=== PATIENT | female | born 1950 | race Asian ===

== ENCOUNTER 2020-05-25 16:54 | Inpatient (IN) | payer OTHER ==
[2020-05-25 17:13] VITALS: BMI 25.2
[2020-05-25] MEDS ORDERED: ASPIRIN 81 MG CHEWABLE TABLETS PO ONE (20:01)
[2020-05-25] MEDS ORDERED: amLODIPine BESYLATE 5 MG TABLET (FP) PO ONE (20:02)
[2020-05-25] MEDS ORDERED: amLODIPine BESYLATE 5 MG TABLET (FP) ONE (20:04)
[2020-05-25] MEDS ORDERED: ASPIRIN 81 MG CHEWABLE TABLETS ONE (20:04)
[2020-05-25 20:40] LABS: BASO % 1.3 % (0-2.0); EOS % 0.5 % (0-4.5); HEMATOCRIT 44.4 % (32.4-45.2); MCH 27.1 pg (25.7-33.7); MCHC 33.8 g/dl (32.0-36.0); MEAN PLT VOLUME 9.2 fl (7.5-11.1); MONO % 10.9 % (3.8-10.2); NEUT % 72.3 % (42.8-82.8); PLATELET COUNT 207 K/MM3 (134-434); RBC 5.55 M/mm3 (3.60-5.2); RDW 16.9 % (11.6-15.6); WHITE BLOOD COUNT 11.1 K/mm3 (4.0-10.0)
[2020-05-25 20:46] LABS: INR 3.14 (0.83-1.09); PROTHROMBIN TIME (PATIENT) 36.8 SEC (9.7-13.0)
[2020-05-25 20:49] LABS: ACTIVATED PTT 46.6 SECONDS (25.2-36.5)
[2020-05-25 20:58] LABS: POTASSIUM 4.5 mmol/L (3.5-5.1)
[2020-05-25 21:00] LABS: ALBUMIN 3.8 g/dl (3.4-5.0); BLOOD UREA NITROGEN 22.3 mg/dL (7-18); CALCIUM 9.3 mg/dL (8.5-10.1)
[2020-05-25 21:05] LABS: BILIRUBIN,TOTAL 1.7 mg/dL (0.2-1); TOT PROT 6.7 g/dl (6.4-8.2)
[2020-05-25 21:08] LABS: N-TERMINAL BNP 4351.8 pg/ml (5-125)
[2020-05-25] MEDS ORDERED: FUROSEMIDE 40 MG/4 ML INJECTABLE VIAL IVPUSH ONE (21:42)
[2020-05-25] MEDS ORDERED: FUROSEMIDE 40 MG/4 ML INJECTABLE VIAL ONE (22:12)
[2020-05-25] MEDS ORDERED: dilTIAZem HCL 50 MG/10 ML - 10 ML VIAL IVPUSH ONE (22:52)
[2020-05-25] MEDS ORDERED: dilTIAZem HCL 125 MG/25 ML - 25 ML VIAL ONE (23:04)
[2020-05-26 07:55] LABS: BASO % 0.9 % (0-2.0); EOS % 1.6 % (0-4.5); HEMATOCRIT 41.6 % (32.4-45.2); HEMOGLOBIN 14.3 GM/dL (10.7-15.3); LYMPH % 9.8 % (8-40); MCH 27.2 pg (25.7-33.7); MCHC 34.4 g/dl (32.0-36.0); MEAN CELL VOLUME 78.9 fl (80-96); MEAN PLT VOLUME 9.6 fl (7.5-11.1); MONO % 11.8 % (3.8-10.2); NEUT % 75.9 % (42.8-82.8); PLATELET COUNT 197 K/MM3 (134-434); RBC 5.27 M/mm3 (3.60-5.2); RDW 16.6 % (11.6-15.6); WHITE BLOOD COUNT 11.9 K/mm3 (4.0-10.0)
[2020-05-26 08:10] LABS: INR 3.09 (0.83-1.09); PROTHROMBIN TIME (PATIENT) 36.8 SEC (9.7-13.0)
[2020-05-26 08:14] LABS: CHLORIDE 107 mmol/L (98-107); POTASSIUM 4.9 mmol/L (3.5-5.1); SODIUM 142 mmol/L (136-145)
[2020-05-26 08:18] LABS: ALBUMIN 3.5 g/dl (3.4-5.0); ANION GAP 6 MMOL/L (8-16); BLOOD UREA NITROGEN 22.1 mg/dL (7-18); CO2 28 mmol/L (21-32); GLUCOSE,RANDOM 190 mg/dL (74-106); MAGNESIUM 1.8 mg/dL (1.8-2.4)
[2020-05-26 08:21] LABS: CREATININE 0.9 mg/dL (0.55-1.3); SGOT/AST 25 U/L (15-37); SGPT/ALT 34 U/L (13-61)
[2020-05-26 08:23] LABS: BILIRUBIN,TOTAL 1.8 mg/dL (0.2-1); TOT PROT 6.3 g/dl (6.4-8.2)
[2020-05-26 08:24] LABS: ALK PHOS 122 U/L (45-117)
[2020-05-26] MEDS: INSULIN SLIDING SCALE (NOVOLOG) 1 VIAL SQ SCH ×4 (08:40→21:59)
[2020-05-26] MEDS ORDERED: INSULIN (LEVEMIR) 100 UNITS/ML UNITS SQ SCH (10:00)
[2020-05-26] MEDS ORDERED: FUROSEMIDE 40 MG/4 ML INJECTABLE VIAL IVPUSH SCH (10:00)
[2020-05-26] MEDS ORDERED: ASCORBIC ACID 1000 MG PO SCH (10:00)
[2020-05-26] MEDS ORDERED: FUROSEMIDE 40 MG/4 ML INJECTABLE VIAL ONE (10:05)
[2020-05-26] MEDS: FUROSEMIDE 40 MG/4 ML INJECTABLE VIAL IVPUSH SCH (10:22)
[2020-05-26] MEDS: ASCORBIC ACID 500 MG TABLET (FP) PO SCH (10:23)
[2020-05-26] MEDS ORDERED: ASCORBIC ACID 500 MG TABLET (FP) ONE (10:24)
[2020-05-26] MEDS ORDERED: METOPROLOL TARTRATE 5 MG/5 ML VIAL IVPUSH PRN (14:23)
[2020-05-26] MEDS ORDERED: METOPROLOL TARTRATE 25 MG TABLET (FP) PO SCH (14:30)
[2020-05-26] MEDS ORDERED: METOPROLOL TARTRATE 25 MG TABLET (FP) ONE ×2 (14:31→20:51)
[2020-05-26] MEDS: METOPROLOL TARTRATE 25 MG TABLET (FP) PO SCH ×2 (14:34→21:16)
[2020-05-26 14:42] LABS: CHOLESTEROL 150 mg/dL (50-200); TRIGLYCERIDES 122 mg/dL (0-150)
[2020-05-26 14:43] LABS: LDL CHOLESTEROL (ONLY SJRH) 81 mg/dL (5-100)
[2020-05-26 14:44] LABS: HDL CHOLESTEROL 61 mg/dL (40-60)
[2020-05-26] MEDS: INSULIN (NOVOLOG) ASPART 100 UNITS/ML 10ML VIAL SQ SCH (17:27)
[2020-05-26] MEDS ORDERED: ATORVASTATIN CA 10 MG TABLET (FP) ONE (20:51)
[2020-05-26] MEDS: ATORVASTATIN CA 10 MG TABLET (FP) PO SCH (21:16)
[2020-05-26] MEDS: INSULIN (LEVEMIR) 100 UNITS/ML UNITS SQ SCH (21:59)
[2020-05-27] MEDS: INSULIN SLIDING SCALE (NOVOLOG) 1 VIAL SQ SCH ×4 (09:02→21:42)
[2020-05-27] MEDS ORDERED: INSULIN (LEVEMIR) 100 UNITS/ML UNITS SQ ONE ×2 (09:08→21:35)
[2020-05-27] MEDS: INSULIN (LEVEMIR) 100 UNITS/ML UNITS SQ SCH ×2 (09:14→21:42)
[2020-05-27] MEDS: INSULIN (NOVOLOG) ASPART 100 UNITS/ML 10ML VIAL SQ SCH ×3 (09:14→18:10)
[2020-05-27] MEDS ORDERED: ASCORBIC ACID 500 MG TABLET (FP) ONE (09:20)
[2020-05-27] MEDS ORDERED: METOPROLOL TARTRATE 25 MG TABLET (FP) ONE ×2 (09:20→21:34)
[2020-05-27] MEDS ORDERED: FUROSEMIDE 40 MG/4 ML INJECTABLE VIAL ONE (09:28)
[2020-05-27] MEDS: FUROSEMIDE 40 MG/4 ML INJECTABLE VIAL IVPUSH SCH (09:33)
[2020-05-27] MEDS: METOPROLOL TARTRATE 25 MG TABLET (FP) PO SCH ×2 (09:34→21:42)
[2020-05-27] MEDS: ASCORBIC ACID 500 MG TABLET (FP) PO SCH (09:34)
[2020-05-27 10:59] LABS: BASO % 0.8 % (0-2.0); EOS % 1.3 % (0-4.5); HEMATOCRIT 44.3 % (32.4-45.2); LYMPH % 9.8 % (8-40); MCH 27.1 pg (25.7-33.7); MCHC 33.9 g/dl (32.0-36.0); MEAN PLT VOLUME 9.7 fl (7.5-11.1); MONO % 12.4 % (3.8-10.2); NEUT % 75.7 % (42.8-82.8); PLATELET COUNT 209 K/MM3 (134-434); RBC 5.54 M/mm3 (3.60-5.2); RDW 16.5 % (11.6-15.6); WHITE BLOOD COUNT 11.2 K/mm3 (4.0-10.0)
[2020-05-27 11:06] LABS: INR 2.09 (0.83-1.09); PROTHROMBIN TIME (PATIENT) 24.7 SEC (9.7-13.0)
[2020-05-27 11:35] LABS: BLOOD UREA NITROGEN 32.5 mg/dL (7-18); CALCIUM 9.2 mg/dL (8.5-10.1)
[2020-05-27 11:36] LABS: ALBUMIN 3.5 g/dl (3.4-5.0)
[2020-05-27 11:40] LABS: BILIRUBIN,TOTAL 1.6 mg/dL (0.2-1); TOT PROT 6.6 g/dl (6.4-8.2)
[2020-05-27] MEDS ORDERED: INSULIN REGULAR HUMAN 100 UNITS/ML *VIAL ONE (18:05)
[2020-05-27] MEDS ORDERED: ATORVASTATIN CA 10 MG TABLET (FP) ONE (21:34)
[2020-05-27] MEDS: ATORVASTATIN CA 10 MG TABLET (FP) PO SCH (21:42)
[2020-05-28] MEDS: INSULIN (LEVEMIR) 100 UNITS/ML UNITS SQ SCH ×2 (06:57→22:09)
[2020-05-28] MEDS: INSULIN SLIDING SCALE (NOVOLOG) 1 VIAL SQ SCH ×4 (06:58→22:09)
[2020-05-28] MEDS: INSULIN (NOVOLOG) ASPART 100 UNITS/ML 10ML VIAL SQ SCH ×3 (06:58→17:48)
[2020-05-28 07:31] LABS: BASO % 0.9 % (0-2.0); EOS % 0.3 % (0-4.5); HEMATOCRIT 44.6 % (32.4-45.2); HEMOGLOBIN 14.9 GM/dL (10.7-15.3); LYMPH % 11.7 % (8-40); MCH 26.8 pg (25.7-33.7); MCHC 33.5 g/dl (32.0-36.0); MEAN CELL VOLUME 80.1 fl (80-96); MONO % 8.2 % (3.8-10.2); NEUT % 78.9 % (42.8-82.8); RBC 5.57 M/mm3 (3.60-5.2); RDW 16.9 % (11.6-15.6); WHITE BLOOD COUNT 12.7 K/mm3 (4.0-10.0)
[2020-05-28 07:33] LABS: INR 1.77 (0.83-1.09); PROTHROMBIN TIME (PATIENT) 21.1 SEC (9.7-13.0)
[2020-05-28 07:57] LABS: POTASSIUM 4.3 mmol/L (3.5-5.1)
[2020-05-28 08:00] LABS: ALBUMIN 3.6 g/dl (3.4-5.0); BLOOD UREA NITROGEN 36.6 mg/dL (7-18)
[2020-05-28 08:01] LABS: CALCIUM 9.4 mg/dL (8.5-10.1)
[2020-05-28 08:03] LABS: CREATININE 0.9 mg/dL (0.55-1.3)
[2020-05-28 08:04] LABS: BILIRUBIN,TOTAL 1.5 mg/dL (0.2-1); TOT PROT 6.8 g/dl (6.4-8.2)
[2020-05-28] MEDS: FUROSEMIDE 40 MG/4 ML INJECTABLE VIAL IVPUSH SCH (09:16)
[2020-05-28] MEDS: ASCORBIC ACID 500 MG TABLET (FP) PO SCH (09:16)
[2020-05-28] MEDS: METOPROLOL TARTRATE 25 MG TABLET (FP) PO SCH ×2 (09:17→22:09)
[2020-05-28] MEDS ORDERED: PT OWN MED DRAWER 7, Y5N ONE (09:43)
[2020-05-28 10:06] LABS: PLATELET COUNT 215 K/MM3 (134-434)
[2020-05-28 14:38] LABS: EPI CELLS 6 /uL (0-25.1); HYALINE CASTS 1 /uL (0-3.1); URINE APPEARANCE CLEAR; URINE BACTERIA 214 /uL (0-1359); URINE BILIRUBIN NEGATIVE (NEGATIVE); URINE COLOR YELLOW; URINE GLUCOSE (UA) NEGATIVE (NEGATIVE); URINE KETONE NEGATIVE (NEGATIVE); URINE LEUK ESTERASE TRACE (NEGATIVE); URINE NITRITE NEGATIVE (NEGATIVE); URINE PROTEIN NEGATIVE (NEGATIVE); URINE RBC 2 /uL (0-23.9); URINE UROBILINOGEN 0.2 mg/dL (0.2-1.0); URINE WBC 24 /uL (0-25.8)
[2020-05-28] MEDS ORDERED: WARFARIN NA 5 MG TABLET PO ONE (21:09)
[2020-05-28] MEDS: ATORVASTATIN CA 10 MG TABLET (FP) PO SCH (22:09)
[2020-05-28] MEDS: METHIMAZOLE 10 MG TABLET (FP) PO SCH (22:09)
[2020-05-29] MEDS: METHIMAZOLE 10 MG TABLET (FP) PO SCH ×3 (06:00→20:59)
[2020-05-29] MEDS: INSULIN SLIDING SCALE (NOVOLOG) 1 VIAL SQ SCH ×4 (06:20→21:01)
[2020-05-29] MEDS: INSULIN (NOVOLOG) ASPART 100 UNITS/ML 10ML VIAL SQ SCH ×3 (06:20→17:48)
[2020-05-29] MEDS: INSULIN (LEVEMIR) 100 UNITS/ML UNITS SQ SCH ×2 (06:20→21:00)
[2020-05-29] MEDS ORDERED: PNEUMOC 13-VAL CONJ-DIP CRM/PF 0.5 ML DISP.SYRIN IM ONE (07:51)
[2020-05-29] MEDS ORDERED: PT OWN MED DRAWER 7, Y5N ONE (09:26)
[2020-05-29] MEDS: ASCORBIC ACID 500 MG TABLET (FP) PO SCH (10:27)
[2020-05-29] MEDS: FUROSEMIDE 40 MG/4 ML INJECTABLE VIAL IVPUSH SCH (10:27)
[2020-05-29] MEDS: CEFUROXIME AXETIL 500 MG TABLET PO SCH ×2 (10:27→20:59)
[2020-05-29] MEDS: METOPROLOL TARTRATE 25 MG TABLET (FP) PO SCH ×2 (10:27→20:59)
[2020-05-29] MEDS ORDERED: ACETAMINOPHEN 500 MG TABLET (FP) PO ONE (10:53)
[2020-05-29] MEDS: LIDOCAINE 5% TOPICAL PATCH TP SCH (11:09)
[2020-05-29 12:46] LABS: BASO % 0.7 % (0-2.0); EOS % 0.7 % (0-4.5); HEMATOCRIT 41.8 % (32.4-45.2); HEMOGLOBIN 14.4 GM/dL (10.7-15.3); LYMPH % 8.2 % (8-40); MCH 27.3 pg (25.7-33.7); MCHC 34.3 g/dl (32.0-36.0); MEAN CELL VOLUME 79.4 fl (80-96); MEAN PLT VOLUME 9.5 fl (7.5-11.1); MONO % 9.4 % (3.8-10.2); PLATELET COUNT 204 K/MM3 (134-434); RBC 5.26 M/mm3 (3.60-5.2); RDW 16.7 % (11.6-15.6); WHITE BLOOD COUNT 12.6 K/mm3 (4.0-10.0)
[2020-05-29 12:55] LABS: INR 1.56 (0.83-1.09); PROTHROMBIN TIME (PATIENT) 18.6 SEC (9.7-13.0)
[2020-05-29 13:11] LABS: POTASSIUM 4.4 mmol/L (3.5-5.1)
[2020-05-29 13:13] LABS: ALBUMIN 3.6 g/dl (3.4-5.0); BLOOD UREA NITROGEN 27.1 mg/dL (7-18); CALCIUM 9.2 mg/dL (8.5-10.1); MAGNESIUM 1.8 mg/dL (1.8-2.4)
[2020-05-29] MEDS ORDERED: ENOXAPARIN NA (PORCINE) 60 MG/0.6 ML DISP.SYRIN SQ SCH (13:15)
[2020-05-29 13:18] LABS: BILIRUBIN,TOTAL 1.4 mg/dL (0.2-1); TOT PROT 6.6 g/dl (6.4-8.2)
[2020-05-29] MEDS: ENOXAPARIN NA (PORCINE) 60 MG/0.6 ML DISP.SYRIN SQ SCH ×2 (14:32→21:00)
[2020-05-29] MEDS: WARFARIN NA 3 MG TABLET PO SCH (17:49)
[2020-05-29] MEDS: ATORVASTATIN CA 10 MG TABLET (FP) PO SCH (20:59)
[2020-05-29] MEDS: ACETAMINOPHEN 325 MG TABLET (FP) PO PRN (20:59)
[2020-05-29] MEDS: LIDOCAINE PATCH REMOVAL MC SCH (21:00)
[2020-05-30] MEDS: INSULIN (NOVOLOG) ASPART 100 UNITS/ML 10ML VIAL SQ SCH ×3 (06:43→17:23)
[2020-05-30] MEDS: METHIMAZOLE 10 MG TABLET (FP) PO SCH ×3 (06:44→20:59)
[2020-05-30] MEDS: INSULIN SLIDING SCALE (NOVOLOG) 1 VIAL SQ SCH ×4 (06:44→21:00)
[2020-05-30] MEDS: INSULIN (LEVEMIR) 100 UNITS/ML UNITS SQ SCH ×2 (06:44→20:59)
[2020-05-30] MEDS ORDERED: PT OWN MED DRAWER 7, Y5N ONE ×3 (08:53→20:48)
[2020-05-30] MEDS: ASCORBIC ACID 500 MG TABLET (FP) PO SCH (09:35)
[2020-05-30] MEDS: METOPROLOL TARTRATE 25 MG TABLET (FP) PO SCH ×2 (09:35→20:59)
[2020-05-30] MEDS: FUROSEMIDE 40 MG/4 ML INJECTABLE VIAL IVPUSH SCH (09:36)
[2020-05-30] MEDS: CEFUROXIME AXETIL 500 MG TABLET PO SCH ×2 (09:36→20:59)
[2020-05-30] MEDS: LIDOCAINE 5% TOPICAL PATCH TP SCH (09:52)
[2020-05-30] MEDS: ENOXAPARIN NA (PORCINE) 60 MG/0.6 ML DISP.SYRIN SQ SCH (09:52)
[2020-05-30 13:52] LABS: INR 2.44 (0.83-1.09); PROTHROMBIN TIME (PATIENT) 29.3 SEC (9.7-13.0)
[2020-05-30] MEDS: WARFARIN NA 3 MG TABLET PO SCH (17:47)
[2020-05-30] MEDS: ACETAMINOPHEN 325 MG TABLET (FP) PO PRN (20:58)
[2020-05-30] MEDS: ATORVASTATIN CA 10 MG TABLET (FP) PO SCH (20:59)
[2020-05-30] MEDS: LIDOCAINE PATCH REMOVAL MC SCH (21:00)
[2020-05-30 21:09] LABS: BASO % 0.8 % (0-2.0); EOS % 0.9 % (0-4.5); HEMATOCRIT 39.8 % (32.4-45.2); HEMOGLOBIN 13.8 GM/dL (10.7-15.3); LYMPH % 8.9 % (8-40); MCH 27.1 pg (25.7-33.7); MCHC 34.6 g/dl (32.0-36.0); MEAN CELL VOLUME 78.4 fl (80-96); MEAN PLT VOLUME 10.5 fl (7.5-11.1); MONO % 13.4 % (3.8-10.2); RBC 5.07 M/mm3 (3.60-5.2); RDW 16.6 % (11.6-15.6); WHITE BLOOD COUNT 13.4 K/mm3 (4.0-10.0)
[2020-05-30 21:32] LABS: POTASSIUM 4.9 mmol/L (3.5-5.1)
[2020-05-30 21:34] LABS: CALCIUM 8.9 mg/dL (8.5-10.1)
[2020-05-30 21:35] LABS: ALBUMIN 3.2 g/dl (3.4-5.0); BLOOD UREA NITROGEN 24.5 mg/dL (7-18); MAGNESIUM 1.9 mg/dL (1.8-2.4)
[2020-05-30 21:38] LABS: CREATININE 1.2 mg/dL (0.55-1.3)
[2020-05-30 21:39] LABS: TOT PROT 6.4 g/dl (6.4-8.2)
[2020-05-30 21:42] LABS: PLATELET COUNT 210 K/MM3 (134-434); PLATELET ESTIMATE ADEQUATE
[2020-05-31] MEDS: METHIMAZOLE 10 MG TABLET (FP) PO SCH ×2 (00:07→09:19)
[2020-05-31] MEDS: INSULIN SLIDING SCALE (NOVOLOG) 1 VIAL SQ SCH ×2 (06:33→11:18)
[2020-05-31] MEDS: INSULIN (NOVOLOG) ASPART 100 UNITS/ML 10ML VIAL SQ SCH ×2 (07:35→11:18)
[2020-05-31] MEDS: INSULIN (LEVEMIR) 100 UNITS/ML UNITS SQ SCH (07:35)
[2020-05-31 08:12] LABS: BASO % 0.9 % (0-2.0); EOS % 1.2 % (0-4.5); HEMATOCRIT 39.9 % (32.4-45.2); HEMOGLOBIN 14.1 GM/dL (10.7-15.3); LYMPH % 9.6 % (8-40); MCH 27.5 pg (25.7-33.7); MCHC 35.3 g/dl (32.0-36.0); MEAN CELL VOLUME 77.9 fl (80-96); MEAN PLT VOLUME 9.6 fl (7.5-11.1); MONO % 14.1 % (3.8-10.2); NEUT % 74.2 % (42.8-82.8); PLATELET COUNT 204 K/MM3 (134-434); RBC 5.12 M/mm3 (3.60-5.2); RDW 16.4 % (11.6-15.6); WHITE BLOOD COUNT 12.6 K/mm3 (4.0-10.0)
[2020-05-31 08:19] LABS: INR 2.36 (0.83-1.09); PROTHROMBIN TIME (PATIENT) 27.9 SEC (9.7-13.0)
[2020-05-31] MEDS: METOPROLOL TARTRATE 25 MG TABLET (FP) PO SCH (09:18)
[2020-05-31] MEDS: ASCORBIC ACID 500 MG TABLET (FP) PO SCH (09:18)
[2020-05-31] MEDS: FUROSEMIDE 40 MG/4 ML INJECTABLE VIAL IVPUSH SCH (09:18)
[2020-05-31] MEDS: LIDOCAINE 5% TOPICAL PATCH TP SCH (09:19)
[2020-05-31] MEDS: CEFUROXIME AXETIL 500 MG TABLET PO SCH (09:39)
[2020-05-31 10:22] LABS: POTASSIUM 4.2 mmol/L (3.5-5.1)
[2020-05-31 10:24] LABS: ALBUMIN 3.1 g/dl (3.4-5.0); CALCIUM 8.9 mg/dL (8.5-10.1)
[2020-05-31 10:25] LABS: BLOOD UREA NITROGEN 22.3 mg/dL (7-18)
[2020-05-31 10:28] LABS: CREATININE 0.8 mg/dL (0.55-1.3)
[2020-05-31 10:29] LABS: TOT PROT 5.9 g/dl (6.4-8.2)
[2020-05-31 15:43] VITALS: BP 106/73; PULSE 109; TEMP 98.2
== END 2020-05-31 17:40 | disposition home or self-care (01) | DRG 309 ==
LOC: JER 16:54 → JERBED 22:39 → J4W 05-27 21:55
PROVIDERS: ADMIT Internal Medicine; ATTEND Nurse Practitioner Family
DX: I48.91 Unspecified atrial fibrillation (principal); N39.0 Urinary tract infection, site not specified; I08.3 Combined rheumatic disorders of mitral, aortic and tricuspid valves; E78.5 Hyperlipidemia, unspecified; R00.0 Tachycardia, unspecified; E11.9 Type 2 diabetes mellitus without complications; E05.90 Thyrotoxicosis, unspecified without thyrotoxic crisis or storm; R79.1 Abnormal coagulation profile
CPT/HCPCS: 36415; 71046-TC-FY; 80053; 80061; 81003; 82550; 82962; 83036; 83721; 83735; 83880; 84100; 84439; 84443; 84480; 84481; 84484; 85025; 85379; 85610; 85730; 87086; 87186; 90670; 93005; 93010; 93306-TC; 99285-25; C9803; U0003